=== PATIENT | female | born 1990 | race Caucasian/White ===

== ENCOUNTER 2020-05-29 00:41 | Outpatient (CLI) | payer BC, SELFPAY ==
[2020-05-29 18:39] LABS: SARS-CoV-2 RNA PCR Negative
== END 2020-05-29 00:42 | disposition home or self-care (01) ==
LOC: ANHCOVIDDT 00:42
PROVIDERS: Surgery Plastic and Reconstructive Surgery; Visit Provider Surgery
DX: Z01.812 Encounter for preprocedural laboratory examination (principal); Z20.828 Contact with and (suspected) exposure to other viral communicable diseases
CPT/HCPCS: 87635; C9803; U0003

== ENCOUNTER 2020-05-29 08:11 | Outpatient (CLI) | payer BC, SELFPAY ==
[2020-05-29 08:48] LABS: Alanine Aminotransferase 27 U/L (4-35); Albumin Level 4.5 g/dL (3.5-5.1); Alkaline Phosphatase 77 U/L (38-126); Amylase 58 U/L (30-110); Aspartate Amino Transferase 28 U/L (14-36); Bilirubin,Total 0.7 mg/dL (0.2-1.3); Lipase 77 U/L (23-300)
== END 2020-05-29 08:12 | disposition home or self-care (01) ==
LOC: ANHSURGERY 08:15
PROVIDERS: PCP Nurse Practitioner Family; Visit Provider Surgery
DX: Z01.818 Encounter for other preprocedural examination (principal); K80.10 Calculus of gallbladder with chronic cholecystitis without obstruction
CPT/HCPCS: 36415; 80076; 82150; 83690

== ENCOUNTER 2020-05-31 01:14 | Day surgery (SDC) | payer BC, SELFPAY ==
[2020-05-28 14:55] VITALS: BMI 29.0
[2020-05-31] VITALS (10 sets, daily range): BP systolic 116–125; BP diastolic 55–73; PULSE 68–106; RESP 11–16; TEMP 36.6–36.8; O2SAT 96–100
[2020-05-31] MEDS: LACTATED RINGERS 1,000 ML 30 ML IV CONT ×2 (09:15→12:10)
[2020-05-31] MEDS: ACETAMINOPHEN 500 MG TABLET 1000 MG PO (09:15)
[2020-05-31] MEDS: KETOROLAC 15 MG/ML VIAL (*BKC) IV PUSH (09:16)
--- NOTE | 2020-05-31 09:23 | WPDANESEPPF ---
Anes - Initial Pre Proc Eval Procedure: Operation Date: 05/31/20 10:30 Proposed Procedures p Laparoscopic Cholecystectomy, Possible Intraoperative Cholangiograms, Possible Open - Mustapha Pedersen MD Date/Time: 05/31/20 09:23 Surgeon: Mustapha Pedersen MD Pre Op Diagnosis: chronic cholecystitis with cholelithiasis Patient Data Age: 29 Gender: F Height: 5 ft 6 in Weight: 87.3 kg Allergies Allergy/AdvReac Type Severity Reaction Status Date / Time No Known Allergies Allergy Verified 05/31/20 08:27 Home Medications Medication Instructions Recorded Confirmed Type multivitamin 1 cap PO DAILY 05/01/20 05/31/20 History carisoprodol 350 mg tablet 350 mg PO TID PRN #21 tablet 05/28/20 05/28/20 Rx docusate sodium 100 mg capsule 100 mg PO DAILY #14 cap 05/28/20 05/28/20 Rx ondansetron HCl 4 mg tablet 4 mg PO Q8H #28 tablet 05/28/20 05/28/20 Rx oxycodone-acetaminophen 5 mg-325 1 tablet PO Q6H PRN #15 tablet 05/28/20 05/28/20 Rx mg tablet Patient hx anesthesia problems: none Family hx anesthesia problems: post op nausea/vomiting PMFSH Surgical History Surgical History History of knee surgery x3 Family History Family History Mother Hypothyroid Father High cholesterol Social History Social History Smoking status: Never smoker Alcohol intake: current Drinks per week: 1 Substance use: never 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 Questions were solicited and answers provided to the satisfaction of the patient/family/POA.
[2020-05-31] MEDS: SCOPOLAMINE 1.5 MG PATCH TRANSDERM (09:30)
--- NOTE | 2020-05-31 10:18 | WPDHPUPDATE1 ---
History and Physical Update Update Date/Time: 05/31/20 10:18 History and Physical has been reviewed, including an updated exam of the patient. There are NO changes in the patient's condition. Risks, benefits, and alternatives have been discussed and questions answered. Patient agrees to proceed with procedure.
[2020-05-31] MEDS: BUPIVACAINE/EPINEPHRINE 0.5% 10 ML VIAL 30 ML INFILTRATE (11:33)
--- NOTE | 2020-05-31 12:16 | PM.PROC ---
Procedure Note - Detailed Date of procedure: 05/31/20 Pre-op diagnosis: chronic cholecystitis with cholelithiasis Chronic Cholecystitis with Cholelithiasis Post-op diagnosis: same Procedure performed: Laparoscopic Cholecystectomy Description of procedure: Patient was seen preoperatively in the holding area and risks, benefits and alternatives confirmed. Patient was taken to the operating room and general anesthesia was induced. A time out was then preformed with the surgery team confirming patient and site of surgery. The abdomen was prepped and draped in the usual sterile fashion. Incision was made just below the umbilicus with an 11 blade knife. I placed 2 stay sutures of O- Vicryl on either side of the mid-line fascia beneath the umbilicus and was then able to slide in the Butler cannula through the fascial defect into the peritoneum. First under low flow and then under high flow the abdomen was insufflated with carbon dioxide never exceeding a pressure of 14. Three 5 mm trocars were then introduced under direct vision. The following trocars were introduced under direct vision: a 5 mm in the epigastrium and two 5 mm trocars along the right costal margin laterally in the subcostal area. There were no significant adhesions to the gallbladder. I then carefully used the L-shaped cautery and the [place] dissector to dissect out the triangle of [place]. I then was able to dissect out both the cystic duct and cystic artery and identify a window of safety. The gall bladder was grasped and the cystic duct and artery were dissected free and clipped with an 5 mm endo-clip [employer] The cystic duct and artery were clipped with use of 2 clips on the patient's side 1 on the gallbladder side utilizing a 5 mm endoclip-[employer]. The cystic duct was then transected. The cystic artery was also transected at this point. The gall bladder was removed using electrocautery and then removed from the abdomen using a large 10 mm grasper via the umbilical incision. In order to get the large stone out of the abdomen within the gallbladder I did make the fascial defect slightly larger with Pa scissors. The trocars were removed visualizing hemostasis and the remaining gas evacuated. The large trocar site at the umbilicus was closed with use of the 2 stay sutures of 0 Vicryl mentioned above and also a figure of 8 O-Vicryl suture and a simple suture of O Vicryl. The 2 stay sutures mentioned above on either side of the fascia were also tied together to help approximate this midline fascia. Further local anesthetic was placed into each incision for postop pain control. The skin incisions were closed with subcuticular suture of 4-0 Monocryl. Surgical glue then was applied to all the incisions. Patient tolerated the procedure well was taken to the recovery room in good condition. Implants: none Anesthesia: GETA Surgeon: Mustapha Pedersen MD [employer] Machine Operator: Lilo PABON, [place] public aid eligibility assistant Estimated blood loss (mL): 5 Drains: No Packing: No Pathology: yes (Gallbladder) Complications: No immediate complications Condition: stable Disposition: PACU Findings: On removal there were 2 medium-size stones in the gallbladder that were palpable.
[2020-05-31] MEDS: ONDANSETRON INJ 4 MG/2 ML VIAL IV PUSH (12:48)
[2020-05-31] MEDS: fentaNYL CITRATE INJ (*CRX) 100 MCG/2 ML VIAL 25 MCG IV PUSH ×2 (13:03→13:13)
[2020-05-31] MEDS: diphenhydrAMINE HCl INJ 50 MG/ML VIAL 25 MG IV PUSH (14:08)
== END 2020-05-31 15:09 | disposition home or self-care (01) ==
PROVIDERS: Visit Provider Surgery
PROC: 0FT44ZZ Resection of Gallbladder, Percutaneous Endoscopic Approach (ICD-10-PCS; CPT 47562; principal; 2020-05-31 10:30)
DX: K80.10 Calculus of gallbladder with chronic cholecystitis without obstruction (principal)
CPT/HCPCS: 47562; 88304; A9270; J1100; J1170; J1200; J1885; J2250; J2405; J2704; J2710; J3010; J7120; Q9966

== ENCOUNTER 2020-06-04 02:18 | Outpatient (CLI) | payer OTHER, BC, SELFPAY ==
[2020-06-04 19:02] LABS: SARS-CoV-2 RNA PCR Negative
== END 2020-06-04 02:19 | disposition home or self-care (01) ==
LOC: ANHCOVIDDT 02:18
PROVIDERS: Surgery; Visit Provider Surgery Plastic and Reconstructive Surgery
DX: Z01.812 Encounter for preprocedural laboratory examination (principal); Z20.828 Contact with and (suspected) exposure to other viral communicable diseases
CPT/HCPCS: 87635; C9803; U0003

== ENCOUNTER 2020-06-06 00:58 | Day surgery (SDC) | payer OTHER, SELFPAY ==
[2020-05-24 14:24] VITALS: BMI 29.0
--- NOTE | 2020-06-06 06:38 | WPDANESEPPF ---
Anes - Initial Pre Proc Eval Procedure: Operation Date: 06/06/20 07:30 Proposed Procedures p Bilateral Breast Augmentation - Enio Camarillo MD Date/Time: 06/06/20 06:38 Surgeon: Enio Camarillo MD Pre Op Diagnosis: Micromastia Patient Data Age: 29 Gender: F Height: 5 ft 6 in Weight: 81.65 kg Allergies Allergy/AdvReac Type Severity Reaction Status Date / Time No Known Allergies Allergy Verified 06/06/20 06:03 Home Medications Medication Instructions Recorded Confirmed Type multivitamin 1 cap PO DAILY 05/01/20 05/31/20 History carisoprodol 350 mg tablet 350 mg PO TID PRN #21 tablet 05/28/20 06/06/20 Rx docusate sodium 100 mg capsule 100 mg PO DAILY #14 cap 05/28/20 06/06/20 Rx ondansetron HCl 4 mg tablet 4 mg PO Q8H #28 tablet 05/28/20 06/06/20 Rx oxycodone-acetaminophen 5 mg-325 1 tablet PO Q6H PRN #15 tablet 05/28/20 06/06/20 Rx mg tablet hydrocodone-acetaminophen [[place]] 1 tablet PO Q6H PRN #10 tablet 05/31/20 06/06/20 Rx Patient hx anesthesia problems: post op nausea/vomiting Family hx anesthesia problems: none PMFSH Surgical History Surgical History History of knee surgery x3 Family History Family History Mother Hypothyroid Father High cholesterol Social History Social History Smoking status: Never smoker Alcohol intake: current Drinks per week: 1 Substance use: never 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 Questions were solicited and answers provided to the satisfaction of the patient/family/POA.
[2020-06-06] MEDS: LACTATED RINGERS 1,000 ML 30 ML IV CONT ×2 (06:41→08:57)
[2020-06-06 06:47] VITALS: BP 107/60; PULSE 86; RESP 16; TEMP 36.9; O2SAT 99
--- NOTE | 2020-06-06 07:04 | WPDHPUPDATE1 ---
History and Physical Update Update Date/Time: 06/06/20 07:04 History and Physical has been reviewed, including an updated exam of the patient. There are NO changes in the patient's condition. Risks, benefits, and alternatives have been discussed and questions answered. Patient agrees to proceed with procedure.
--- NOTE | 2020-06-06 07:21 | PM.PROC ---
Procedure Note - Detailed Date of procedure: 06/06/20 Pre-op diagnosis: Micromastia Post-op diagnosis: same Procedure performed: Bilateral Augmentation Mammaplasty Description of procedure: She is here today for bilateral breast augmentation. Previously and again today the risks, benefits, alternatives were discussed in extensive detail. I wanted her to be very realistic about the risks involved as well as expectations. We discussed aftercare and what to monitor for. Made sure answered all of her questions to her satisfaction today and consent was obtained. Marked in the preoperative holding area with their verification. The patient was taken to the operating room placed supine on the operating table. Anesthesia was provided by anesthesiology. A surgical time-out was taken. We cleansed the skin and 1% lidocaine and 0.25% Marcaine with epinephrine was used anesthetize as a field block. She was prepped and draped in a standard sterile fashion. Tegaderm nipple Marroquin were placed. A 15 blade used to make an incision along the inframammary fold. Dissection was continued at 45 degree angle until the chest wall as identified. I elevated above the muscle - left dual plane 3, right dual plane 2. I incised the pectoralis major along its inferior border and completely released the inferior border leaving the medial border intact. I created a subpectoral pocket in the appropriate dimensions based on our preoperative planning for the implant. I then copiously irrigated with saline solution and verified a strict hemostasis. Next the use a triple antibiotic and Betadine containing solution to irrigate the pocket. I washed my gloves with the triple antibiotic and Betadine solution. We washed the implant immediately upon opening it with this solution and only opened it when we needed it. I used implant funnel and no-touch technique. The implant was introduced into the pocket using the funnel. Having verified positioning of the implant this was closed using 2-0 Vicryl followed by 3-0 Monocryl in a running subcuticular 4-0 Monocryl followed by tissue glue. Fluffs, Madhu wrap, and surgical bra were placed. Patient was awoke and taken to PACU without difficulty. All instrument sponge counts were correct at the end of the case. Anesthesia: GLMA Surgeon: Enio Camarillo MD Estimated blood loss (mL): 20 Drains: No Packing: No Pathology: none sent Complications: No immediate complications Condition: stable Disposition: PACU Findings: Right Dual plane 2 Left Dual plane 3 Bilateral 445cc Silicone implants Right: REF M-445 SN [id number] Left: REF M-445 SN [id number]
[2020-06-06] MEDS: ceFAZolin 2 GM/D5W 50 ML 2 GM/50 ML BAG IVPB (07:29)
[2020-06-06] MEDS: LIDO 1%/EPINEPHRINE 1:100,000 20 ML VIAL 40 ML INFILTRATE (08:41)
[2020-06-06 08:57] VITALS: BP 119/49; PULSE 88; RESP 16; O2SAT 100
[2020-06-06 09:30] VITALS: BP 120/55; PULSE 78; RESP 16; O2SAT 99
[2020-06-06] MEDS: HYDROmorphone HCL INJ (*CRX) 1 MG/ML SYR 0.5 MG IV PUSH ×2 (09:56→10:09)
[2020-06-06 10:00] VITALS: BP 113/61; PULSE 74; RESP 16
[2020-06-06] MEDS: SCOPOLAMINE 1.5 MG PATCH TRANSDERM (10:10)
--- NOTE | 2020-06-06 10:13 | SUR.PHASEII ---
1010; PT AWAKE AND ALERT. DENIES NAUSEA. STATES PAIN DOWN TO 5/10 NOW. PT NO LONGER GRIMACING. PT ASKING FOR SCOPE PATCH THAT WAS ORDERED JUST IN CASE . SCOPE PATCH PLACED ON PT. PT EATING AND DRINKING.
[2020-06-06 10:27] VITALS: BP 118/49; PULSE 73; RESP 14
--- NOTE | 2020-06-06 10:29 | SUR.PHASEII ---
PT AWAKE AND ALERT. STATES PAIN BETTER NOW AT 4/10 AND TOLERABLE.
[2020-06-06] MEDS: oxyCODONE HCL (*CRX) 5 MG TAB IR PO (10:47)
--- NOTE | 2020-06-06 10:50 | SUR.PHASEII ---
PT AWAKE AND ALERT. EATING AND DRINKING. FULLY DRESSED. WAITING FOR RIDE.
== END 2020-06-06 11:15 | disposition home or self-care (01) ==
PROVIDERS: Visit Provider Surgery Plastic and Reconstructive Surgery
PROC: (CPT 19325; principal; 2020-06-06 07:30)
DX: Z41.1 Encounter for cosmetic surgery (principal); N64.82 Hypoplasia of breast
CPT/HCPCS: 19325; A9270; J0690; J1100; J1170; J1580; J2250; J2405; J2704; J3010; J7120